=== PATIENT | male | born 1940 | race Caucasian/White ===

== ENCOUNTER → 2022-09-03 | Outpatient (REF) ==
[~2022-09-03] MED LIST: ALLEGRA 180MG180 MG PO; ASPIRIN E.C. 8181 MG PO; BRILINTA90 MG PO; CARTIA XT180 MG PO; CEFTIN 250250 MG/TAB PO; EFFIENT10 MG PO; FLOMAX 0.40.4 MG/CAP PO; FLONASEALLERGY NS; IMDUR 60MG60 MG/TAB PO; LEVAQUIN 250MG250 MG PO; LIPITOR 10MG10 MG PO; LIPITOR 80MG80 MG PO; LIPITOR20 MG PO; LOTRISONE CREAM15 GM TP; MASON NATURAL1200 MG PO; MASON NATURAL2000 IU PO; NEXIUM 20MG20 MG PO; NITROSTAT0.4 MG/TAB SL; NORCO 325 MG-51 TAB PO; OMEPRAZOLE40 MG PO; PEPCID 20MG TAB20 MG PO; PLAVIX 75MG TAB75 MG PO; PRIL40 PO; PRINIVIL2.5 MG PO; PYRIDIUM200 M1 PO; RAPAFLO8 MG PO; REFRESH 1 ML1 ML OP; REQUIP 0.5MG0.5 MG PO; ROBITUSSIN A-C S1 M1 PO; RT ADVAIR HFA 1112 G IH; SYNTHROID0.05 MG/TA PO; SYNTHROID0.075 MG/T PO; SYSTANE LUBRICAN5 ML OP; TOPROL XL 25MG25 MG PO; VENTOLIN0.09 MG IH; VICODIN 5/5001 UDTAB PO; VITAMIN D250 MCG PO; VITAMIND3 5000 PO; ZESTRIL2.5 MG PO; [UNRECOGNIZED DRUG - OTHER] PO; [UNRECOGNIZED DRUG - OTHER] PO
== END ==
LOC: COL.CARD 12:03
DX: I49.9 Cardiac arrhythmia, unspecified (principal)